=== PATIENT | female | born 1940 | race Caucasian/White ===

== ENCOUNTER 2021-03-09 09:34 | Inpatient (IN) | payer MEDICARE ==
[2021-03-09 10:16] LABS: #Basophils 0.1 10x3/uL (0.0-0.2); #Eosinphils 0.2 10x3/uL (0.0-0.5); #Neutrophils 4.9 10x3/uL (1.5-8.4); %Eosinophils 2.9 % (0.0-6.0); %Lymphocytes 25.4 % (18.0-47.0); %Monocytes 12.4 % (0.0-10.0); %Neutrophils 57.8 % (40.0-75.0); Hemoglobin 13.6 g/dL (12.0-15.5); Mean Corpuscular HGB CONC 33.7 g/dL (32.0-36.0); Mean Corpuscular Hemoglobin 30.2 pg (27.0-33.0); Mean Corpuscular Volume 89.6 fl (81.6-98.3); Platelet Count 341 10x3/uL (150-450); RBC Distribution Width 12.6 % (11.5-14.5); White Blood Cell (WBC) Count 8.4 10x3/uL (3.5-10.5)
[2021-03-09 10:25] LABS: ALT (SGPT) 10 U/L (8-55); AST (SGOT) 17 U/L (5-34); Albumin 4.4 g/dL (3.4-4.8); Alkaline Phosphatase 104 U/L (40-110); Anion Gap 15 mmol/L (10-20); BUN (Urea Nitrogen) 15 mg/dL (9.8-20.1); Bilirubin, Total 0.5 mg/dL (0.2-1.2); Calc. Creatinine Clearance 0 mL/min (70-130); Calcium 9.5 mg/dL (7.8-10.44); Carbon Dioxide 21 mmol/L (23-31); Chloride 106 mmol/L (98-107); Globulin 3.4 g/dL (2.4-3.5); Glucose 116 mg/dL (83-110); Potassium 4.3 mmol/L (3.5-5.1); Protein, Total 7.8 g/dL (5.8-8.1); Sodium 138 mmol/L (136-145)
[2021-03-09 10:40] LABS: Bilirubin Neg (Negative); Blood, Urine 10 (Negative); Clarity Slightly Cloudy (Clear); Glucose, Urine (Dipstick) Normal (Negative); Ketone, Urine Negative (Negative); Leukocyte 500 (Negative); Nitrite Positive (Negative); Protein, Urine (Dipstick) 30 mg/dl (Neg-Trace); Urobilinogen Normal mg/dL (Less than 2)
[2021-03-09] MEDS ORDERED: Aspirin 325 MG TAB ONE (10:51)
[2021-03-09] MEDS ORDERED: Aspirin 325 mg Enteric Coated Tablet PO SCH (11:00)
[2021-03-09 11:18] LABS: RBC/HPF 0-3 HPF (0-3); Squamous Epithelial 0-3 HPF (0-3); WBC/HPF 21-50 HPF (0-3)
[2021-03-09 11:19] LABS: Bacteria/HPF 4+ HPF (None Seen)
[2021-03-09] MEDS ORDERED: hydrALAZINE 20 MG/ML VIAL SLOW IVP PRN (12:22)
[2021-03-09] MEDS ORDERED: Dextrose 50% Abboject 50 ML SYRINGE SLOW IVP PRN (12:25)
[2021-03-09] MEDS ORDERED: Insulin Regular 300 UNITS/3 ML VIAL SC PRN ×2 (12:25)
[2021-03-09] MEDS ORDERED: Dextrose 5% in Water 1,000 ML IV PRN (12:25)
[2021-03-09 13:06] LABS: Troponin I Less than 0.010 ng/mL (< 0.028)
[2021-03-09 13:26] VITALS: BMI 24.5
[2021-03-09 16:01] LABS: Troponin I Less than 0.010 ng/mL (< 0.028)
[2021-03-09] MEDS: Atorvastatin Calcium 40 MG TAB PO SCH (21:03)
[2021-03-10 04:43] LABS: Cardiac Risk 5.7 (Less than 4.5)
[2021-03-10] MEDS: Levothyroxine Sodium 75 MCG TAB PO SCH (06:16)
[2021-03-10] MEDS ORDERED: Aspirin 81 mg Enteric Coated Tablet PO SCH (09:00)
[2021-03-10] MEDS ORDERED: BALSALAZIDE 750 MG PO SCH (09:00)
[2021-03-10] MEDS ORDERED: Amlodipine 10 MG TAB PO SCH (09:00)
[2021-03-10] MEDS: metFORMIN 500 MG TAB PO SCH ×2 (09:12→18:34)
[2021-03-10] MEDS: azaTHIOprine 50 MG TAB PO SCH (09:12)
[2021-03-10] MEDS: Atorvastatin Calcium 40 MG TAB PO SCH (21:02)
[2021-03-10 21:44] LABS: SARS-CoV-2 PCR by NAA Not Detected (NotDetected)
[2021-03-11] MEDS: Levothyroxine Sodium 75 MCG TAB PO SCH (06:12)
[2021-03-11] MEDS: metFORMIN 500 MG TAB PO SCH (08:58)
[2021-03-11] MEDS: azaTHIOprine 50 MG TAB PO SCH (08:58)
[2021-03-11] MEDS ORDERED: Aspirin 325 mg Enteric Coated Tablet PO SCH (09:00)
[2021-03-11 12:14] VITALS: BP 150/57; TEMP 98.5
== END 2021-03-11 15:20 | disposition home or self-care (01) | DRG 65 ==
LOC: CSHERS 09:34 → CSHTELE 12:06
PROVIDERS: ADMIT Internal Medicine; ATTEND Internal Medicine
DX: I63.89 Other cerebral infarction (principal); K51.90 Ulcerative colitis, unspecified, without complications; G93.49 Other encephalopathy; Z20.822 Contact with and (suspected) exposure to COVID-19; I10 Essential (primary) hypertension; E11.8 Type 2 diabetes mellitus with unspecified complications; Z66 Do not resuscitate; E78.5 Hyperlipidemia, unspecified; R40.4 Transient alteration of awareness; Z79.84 Long term (current) use of oral hypoglycemic drugs; Z79.899 Other long term (current) drug therapy; Z88.2 Allergy status to sulfonamides; H53.451 Other localized visual field defect, right eye
CPT/HCPCS: 36415; 36416; 70450; 70551; 71045; 80053; 80061; 81003; 81015; 84484; 85025; 87635; 93005; 93010; 93306; 93880; J7500; J8499; U0003; U0005

== ENCOUNTER 2022-04-02 11:06 | Outpatient (CLI) | payer MEDICARE ==
[~2022-04-02 11:06] MED LIST: Magnevist 469MG/ML 20 ML VIAL ONE
== END 2022-04-02 11:07 | disposition home or self-care (01) ==
LOC: CSHMRI 11:06
PROVIDERS: ATTEND Family Medicine
DX: I63.9 Cerebral infarction, unspecified (principal)
CPT/HCPCS: 70553